=== PATIENT | female | born 1935 | race Caucasian/White ===

== ENCOUNTER 2017-09-02 20:17 | Inpatient (IN) | payer OTHER, MEDICAID ==
[~2017-09-02] VITALS: Ht 162.6 cm; Wt 97.2 kg
[~2017-09-02 20:17] MED LIST: ADA30 PO; APR10 PO; ASPIR 8181 MG PO; CARD1 PO; CAT0.1 PO; FOL1 PO; K10 PO; L40 PO; LANTUS SOLOS100 U/M1 SC; LEVAQUIN750 MG PO; LISINOPRIL10 MG PO; LYRICA75 M1 PO; NEU300 PO; NOVI SQ; OYSCO 500 + D 51 TAB PO; PRA40 PO; PRI20 PO; SYN1 PO; XANAX0.5 MG PO
[2017-09-02 21:41] LABS: BASOPHIL % 0.2 % (0-2); PLATELET COUNT 240 x10^3mcL (130-400); RED CELL DISTRIBUTION WIDTH 14.4 % (11.5-14.5)
[2017-09-02 21:58] LABS: ALKALINE PHOSPHATASE 253 U/L (46-116); ALT/SGPT 19 U/L (14-59); AST/SGOT 11 U/L (15-37); BILIRUBIN TOTAL 0.4 mg/dL (0.20-1.00); CALCIUM 8.7 mg/dL (8.5-10.1); CARBON DIOXIDE 28.4 mmol/L (21-32); CHLORIDE SERUM 94 mmol/L (98-107); FREE T4 1.22 ng/dL (0.76-1.46); GLUCOSE SERUM 232 mg/dL (74-106); HDL CHOLESTEROL 41 mg/dL (40-60); LIPASE 129 IU/L (73-393); POTASSIUM SERUM 5.1 mmol/L (3.5-5.1); SODIUM SERUM 133 mmol/L (136-145); T4(THYROXINE) 7.4 ug/dL (4.7-13.3); TOTAL PROTEIN, SERUM 8.1 g/dL (6.4-8.2); TRIGLYCERIDES 140 mg/dL (<150)
[2017-09-02 22:01] LABS: ALBUMIN 2.3 g/dL (3.4-5.0); CHOLESTEROL 124 mg/dL (<200); CREATININE SERUM 8.1 mg/dL (0.6-1.0)
[2017-09-02 22:24] LABS: T3 TOTAL 0.54 ng/mL
[2017-09-02 23:41] LABS: MAGNESIUM 2.6 mg/dL (1.8-2.4); PHOSPHOROUS 5.7 mg/dL (2.5-4.9)
[2017-09-03 00:05] VITALS: BP 135/46
[2017-09-03 00:09] VITALS: Ht 162.6 cm; Wt 97.2 kg
[2017-09-03 05:48] VITALS: BP 147/48
[2017-09-03 09:05] VITALS: BP 114/60
[2017-09-03 13:47] VITALS: BP 114/51
[2017-09-03 17:52] VITALS: BP 101/45
[2017-09-03 19:48] LABS: BASOPHIL % 0.3 % (0-2); PLATELET COUNT 222 x10^3mcL (130-400)
[2017-09-03 19:52] LABS: CALCIUM 8.6 mg/dL (8.5-10.1); CARBON DIOXIDE 33.8 mmol/L (21-32); CHLORIDE SERUM 99 mmol/L (98-107); GLUCOSE SERUM 161 mg/dL (74-106); MAGNESIUM 1.9 mg/dL (1.8-2.4); POTASSIUM SERUM 3.8 mmol/L (3.5-5.1); SODIUM SERUM 138 mmol/L (136-145)
[2017-09-03 19:57] LABS: CREATININE SERUM 4.5 mg/dL (0.6-1.0)
[2017-09-03 22:42] VITALS: BP 151/47
[2017-09-04 05:22] VITALS: BP 134/48
[2017-09-04 05:36] LABS: microscopic required? YES; urine erythrocyte 1+ (NEGATIVE)
[2017-09-04 05:51] LABS: AMPHETAMINE QUAL UR NONE DETECTED (NEG <=1000)
[2017-09-04 06:05] LABS: BASOPHIL % 0.3 % (0-2); PLATELET COUNT 212 x10^3mcL (130-400); RED CELL DISTRIBUTION WIDTH 14.3 % (11.5-14.5)
[2017-09-04 06:22] LABS: CALCIUM 8.7 mg/dL (8.5-10.1); CARBON DIOXIDE 31.4 mmol/L (21-32); CHLORIDE SERUM 97 mmol/L (98-107); GLUCOSE SERUM 167 mg/dL (74-106); MAGNESIUM 2.2 mg/dL (1.8-2.4); PHOSPHOROUS 6.1 mg/dL (2.5-4.9); POTASSIUM SERUM 4.4 mmol/L (3.5-5.1); SODIUM SERUM 136 mmol/L (136-145)
[2017-09-04 06:32] LABS: CREATININE SERUM 5.2 mg/dL (0.6-1.0)
[2017-09-04 09:19] VITALS: BP 103/55
[2017-09-04 13:19] VITALS: BP 145/53
[2017-09-04 17:07] VITALS: BP 139/50
[2017-09-04 21:19] VITALS: BP 119/49
[2017-09-05 06:09] LABS: CALCIUM 8.8 mg/dL (8.5-10.1); CHLORIDE SERUM 98 mmol/L (98-107); GLUCOSE SERUM 117 mg/dL (74-106); MAGNESIUM 2.5 mg/dL (1.8-2.4); POTASSIUM SERUM 4.4 mmol/L (3.5-5.1); SODIUM SERUM 137 mmol/L (136-145)
[2017-09-05 06:12] LABS: CREATININE SERUM 6.4 mg/dL (0.6-1.0)
[2017-09-05 06:26] LABS: BASOPHIL % 0.6 % (0-2); PLATELET COUNT 216 x10^3mcL (130-400); RED CELL DISTRIBUTION WIDTH 14.2 % (11.5-14.5)
[2017-09-05 06:51] VITALS: BP 115/51
[2017-09-05 10:08] VITALS: BP 129/53
[2017-09-05 14:09] VITALS: BP 127/55
[2017-09-05 16:39] VITALS: BP 127/55
[2017-09-05 17:40] VITALS: BP 127/48
[2017-09-05 21:12] VITALS: BP 134/46
[2017-09-06 05:56] VITALS: BP 139/56
[2017-09-06 06:30] LABS: BASOPHIL % 0.6 % (0-2); PLATELET COUNT 232 x10^3mcL (130-400); RED CELL DISTRIBUTION WIDTH 13.9 % (11.5-14.5)
[2017-09-06 07:03] LABS: CALCIUM 8.8 mg/dL (8.5-10.1); CARBON DIOXIDE 32.4 mmol/L (21-32); CHLORIDE SERUM 97 mmol/L (98-107); GLUCOSE SERUM 61 mg/dL (74-106); MAGNESIUM 2.3 mg/dL (1.8-2.4); PHOSPHOROUS 5.1 mg/dL (2.5-4.9); POTASSIUM SERUM 3.5 mmol/L (3.5-5.1); SODIUM SERUM 129 mmol/L (136-145)
[2017-09-06 07:20] LABS: CREATININE SERUM 4.6 mg/dL (0.6-1.0)
[2017-09-06 09:00] VITALS: BP 146/48
[2017-09-06] MEDS ORDERED: CLEOCIN HCL150 MG PO (13:06)
[2017-09-06] MEDS ORDERED: LEVAQUIN750 MG PO (13:07)
[2017-09-06 14:13] VITALS: BP 132/49
== END 2017-09-06 17:50 | DRG 637 ==
LOC: ED 20:17 → DU 22:20
PROVIDERS: Specialist; ADMIT Family Medicine Sports Medicine
PROC: 0HBMXZZ Excision of Right Foot Skin, External Approach (ICD-10-PCS; principal; 2017-09-04)
DX: E11.628 Type 2 diabetes mellitus with other skin complications (principal); E43 Unspecified severe protein-calorie malnutrition; L03.115 Cellulitis of right lower limb; I12.0 Hypertensive chronic kidney disease with stage 5 chronic kidney disease or end stage renal disease; D68.69 Other thrombophilia; N39.0 Urinary tract infection, site not specified; B96.20 Unspecified Escherichia coli [E. coli] as the cause of diseases classified elsewhere; N18.6 End stage renal disease; N17.0 Acute kidney failure with tubular necrosis; L97.519 Non-pressure chronic ulcer of other part of right foot with unspecified severity; E11.621 Type 2 diabetes mellitus with foot ulcer; E11.51 Type 2 diabetes mellitus with diabetic peripheral angiopathy without gangrene; E11.65 Type 2 diabetes mellitus with hyperglycemia; E83.41 Hypermagnesemia; E83.39 Other disorders of phosphorus metabolism; D53.9 Nutritional anemia, unspecified; E03.9 Hypothyroidism, unspecified; K21.9 Gastro-esophageal reflux disease without esophagitis; Z68.35 Body mass index [BMI] 35.0-35.9, adult; Z99.2 Dependence on renal dialysis; Z91.81 History of falling; Z79.4 Long term (current) use of insulin; Z16.24 Resistance to multiple antibiotics
CPT/HCPCS: 36600; 82962; 83880; 84439; 97110-GP; 97116-GP; 97530-GP; A4719; J0885-EC; J1644; J1815; J1885; J1956; J2405; J3490; J7030; Q0092

== ENCOUNTER 2018-02-03 19:05 | Inpatient (IN) | payer OTHER, MEDICAID ==
[~2018-02-03] VITALS: Ht 162.6 cm; Wt 86.7 kg
[~2018-02-03 19:05] MED LIST changes: +CLEOCIN HCL150 MG PO
[2018-02-03] MEDS ORDERED: RENVELA800 M1 PO (19:53)
[2018-02-03] MEDS ORDERED: DIALYVITE 800 W1 TA2 PO (19:55)
[2018-02-03] MEDS ORDERED: GABAPENTIN100 M2 PO (19:55)
[2018-02-03] MEDS ORDERED: TRAMADOL HCL50 MG PO (19:56)
[2018-02-03] MEDS ORDERED: ATORVASTATIN CA40 M1 PO (19:57)
[2018-02-03] MEDS ORDERED: XANAX0.5 MG PO (19:58)
[2018-02-03 20:24] LABS: BASOPHIL % 0.1 % (0-2); PLATELET COUNT 205 x10^3mcL (130-400); RED CELL DISTRIBUTION WIDTH 15.2 % (11.5-14.5)
[2018-02-03 20:42] LABS: ALKALINE PHOSPHATASE 232 U/L (46-116); ALT/SGPT 18 U/L (14-59); AST/SGOT 8 U/L (15-37); BILIRUBIN TOTAL 0.56 mg/dL (0.20-1.00); CALCIUM 9.7 mg/dL (8.5-10.1); CARBON DIOXIDE 30.2 mmol/L (21-32); CHLORIDE SERUM 96 mmol/L (98-107); GLUCOSE SERUM 84 mg/dL (74-106); POTASSIUM SERUM 5.2 mmol/L (3.5-5.1); SODIUM SERUM 136 mmol/L (136-145); TOTAL PROTEIN, SERUM 8.2 g/dL (6.4-8.2)
[2018-02-03 20:46] LABS: ALBUMIN 2.5 g/dL (3.4-5.0); CHOLESTEROL 114 mg/dL (<200); CREATININE SERUM 6.2 mg/dL (0.6-1.0); HDL CHOLESTEROL 61 mg/dL (40-60)
[2018-02-03] MEDS ORDERED: HUMI SC (21:46)
[2018-02-03] MEDS ORDERED: LANTUS SOLOS100 U/M1 SQ (21:46)
[2018-02-03 22:04] LABS: MAGNESIUM 2.4 mg/dL (1.8-2.4); PHOSPHOROUS 5.1 mg/dL (2.5-4.9)
[2018-02-03 22:11] LABS: T3 TOTAL 0.68 ng/mL
[2018-02-03 22:14] LABS: FREE T4 1.21 ng/dL (0.76-1.46); FREE THYROXINE INDEX 2.4 ug/dL (1.4-4.5); T4(THYROXINE) 6.5 ug/dL (4.7-13.3)
[2018-02-03 22:28] VITALS: BP 112/43
[2018-02-03] MEDS ORDERED: HYDRALAZINE HCL10 MG PO (23:30)
[2018-02-03] MEDS ORDERED: KLOR-CON 88 MEQ PO (23:40)
[2018-02-04 00:31] VITALS: BP 112/43
[2018-02-04 05:19] VITALS: BP 141/57
[2018-02-04 06:48] LABS: PLATELET COUNT 181 x10^3mcL (130-400)
[2018-02-04 07:05] LABS: BASOPHIL % 0 % (0-2); RED CELL DISTRIBUTION WIDTH 14.8 % (11.5-14.5)
[2018-02-04 09:16] LABS: CALCIUM 9.7 mg/dL (8.5-10.1); CARBON DIOXIDE 26.1 mmol/L (21-32); CHLORIDE SERUM 94 mmol/L (98-107); GLUCOSE SERUM 283 mg/dL (74-106); SODIUM SERUM 133 mmol/L (136-145)
[2018-02-04 09:20] LABS: POTASSIUM SERUM 6.3 mmol/L (3.5-5.1)
[2018-02-04 10:19] VITALS: BP 106/64
[2018-02-04 13:34] VITALS: BP 154/55
[2018-02-04 17:42] VITALS: BP 156/59
[2018-02-04 21:33] VITALS: BP 107/50
[2018-02-05 01:47] LABS: CALCIUM 9.4 mg/dL (8.5-10.1); CARBON DIOXIDE 30.9 mmol/L (21-32); CHLORIDE SERUM 96 mmol/L (98-107); GLUCOSE SERUM 272 mg/dL (74-106); POTASSIUM SERUM 4.2 mmol/L (3.5-5.1); SODIUM SERUM 135 mmol/L (136-145)
[2018-02-05 01:52] LABS: CREATININE SERUM 4.1 mg/dL (0.6-1.0)
[2018-02-05 05:33] VITALS: BP 138/47
[2018-02-05 06:35] LABS: PLATELET COUNT 191 x10^3mcL (130-400)
[2018-02-05 06:48] LABS: RED CELL DISTRIBUTION WIDTH 14.7 % (11.5-14.5)
[2018-02-05 06:49] LABS: BASOPHIL % 0 % (0-2)
[2018-02-05 06:53] LABS: CALCIUM 9.6 mg/dL (8.5-10.1); CARBON DIOXIDE 29.2 mmol/L (21-32); CHLORIDE SERUM 95 mmol/L (98-107); GLUCOSE SERUM 267 mg/dL (74-106); MAGNESIUM 2.1 mg/dL (1.8-2.4); PHOSPHOROUS 6.3 mg/dL (2.5-4.9); POTASSIUM SERUM 4.6 mmol/L (3.5-5.1); SODIUM SERUM 133 mmol/L (136-145); URIC ACID 3.3 mg/dL (2.6-6.0)
[2018-02-05 06:59] LABS: CREATININE SERUM 4.7 mg/dL (0.6-1.0)
[2018-02-05 09:03] VITALS: BP 108/39
[2018-02-05 13:35] VITALS: BP 130/51
[2018-02-05 17:24] VITALS: BP 101/50
[2018-02-05 20:34] VITALS: BP 122/50
[2018-02-06 05:39] VITALS: BP 131/43
[2018-02-06 07:19] LABS: BASOPHIL % 0.2 % (0-2); PLATELET COUNT 197 x10^3mcL (130-400)
[2018-02-06 07:20] LABS: RED CELL DISTRIBUTION WIDTH 15.2 % (11.5-14.5)
[2018-02-06 07:32] LABS: CALCIUM 9.3 mg/dL (8.5-10.1); CARBON DIOXIDE 28.3 mmol/L (21-32); CHLORIDE SERUM 97 mmol/L (98-107); GLUCOSE SERUM 89 mg/dL (74-106); MAGNESIUM 2.2 mg/dL (1.8-2.4); PHOSPHOROUS 7.2 mg/dL (2.5-4.9); POTASSIUM SERUM 4.5 mmol/L (3.5-5.1); SODIUM SERUM 135 mmol/L (136-145)
[2018-02-06 07:52] VITALS: Ht 162.6 cm; Wt 86.7 kg
[2018-02-06 09:10] VITALS: BP 129/45
[2018-02-06] MEDS ORDERED: ECO81 PO (11:03)
[2018-02-06] MEDS ORDERED: REN800 PO (11:04)
[2018-02-06] MEDS ORDERED: LAC PO (11:05)
[2018-02-06] MEDS ORDERED: BACO TOP (11:05)
[2018-02-06] MEDS ORDERED: MYCP TOP (11:06)
[2018-02-06] MEDS ORDERED: HIBICLENS118 ML TOP (11:06)
[2018-02-06] MEDS ORDERED: LEV250PM IV (11:35)
[2018-02-06] MEDS ORDERED: CLINDAMYCI600 MG/50 IV (11:37)
[2018-02-06 12:13] VITALS: BP 161/57
[2018-02-06 16:29] VITALS: BP 161/57
== END 2018-02-06 18:18 | DRG 177 ==
LOC: ED 19:05 → DU 21:25
PROVIDERS: Emergency Medicine; Family Medicine
DX: J69.0 Pneumonitis due to inhalation of food and vomit (principal); N18.6 End stage renal disease; N17.0 Acute kidney failure with tubular necrosis; J45.901 Unspecified asthma with (acute) exacerbation; I12.0 Hypertensive chronic kidney disease with stage 5 chronic kidney disease or end stage renal disease; E87.1 Hypo-osmolality and hyponatremia; Z99.2 Dependence on renal dialysis; E11.40 Type 2 diabetes mellitus with diabetic neuropathy, unspecified; K21.9 Gastro-esophageal reflux disease without esophagitis; E78.00 Pure hypercholesterolemia, unspecified; E11.22 Type 2 diabetes mellitus with diabetic chronic kidney disease; E03.9 Hypothyroidism, unspecified; Z82.49 Family history of ischemic heart disease and other diseases of the circulatory system; Z68.37 Body mass index [BMI] 37.0-37.9, adult; F41.9 Anxiety disorder, unspecified; D64.9 Anemia, unspecified; E87.8 Other disorders of electrolyte and fluid balance, not elsewhere classified; E87.5 Hyperkalemia; E66.9 Obesity, unspecified
CPT/HCPCS: 82962; 83880; 84439; 87804; 94150; 97110-GP; 97530-GP; J0696; J1644; J1815; J1956; J2550; J2920; J3490; J7030; J7512; J7613; J7620; Q0092; Q0162

== ENCOUNTER 2018-03-12 12:49 | Emergency (ER) | payer OTHER, MEDICAID ==
[~2018-03-12] VITALS: Ht 157.5 cm; Wt 90.7 kg
[~2018-03-12 12:49] MED LIST changes: +ATORVASTATIN CA40 M1 PO; +BACO TOP; +CLINDAMYCI600 MG/50 IV; +DIALYVITE 800 W1 TA2 PO; +ECO81 PO; +GABAPENTIN100 M2 PO; +HIBICLENS118 ML TOP; +HUMI SC; +HYDRALAZINE HCL10 MG PO; +KLOR-CON 88 MEQ PO; +LAC PO; +LANTUS SOLOS100 U/M1 SQ; +LEV250PM IV; +MYCP TOP; +REN800 PO; +RENVELA800 M1 PO; +TRAMADOL HCL50 MG PO
[2018-03-12 12:56] VITALS: Ht 157.5 cm; Wt 90.7 kg
[2018-03-12 14:51] VITALS: BP 133/59
== END 2018-03-12 14:50 | disposition home or self-care (01) ==
LOC: ED 12:49
DX: S92.351A Displaced fracture of fifth metatarsal bone, right foot, initial encounter for closed fracture (principal); S91.114A Laceration without foreign body of right lesser toe(s) without damage to nail, initial encounter; J45.909 Unspecified asthma, uncomplicated; E78.00 Pure hypercholesterolemia, unspecified; E07.9 Disorder of thyroid, unspecified; G62.9 Polyneuropathy, unspecified; K21.9 Gastro-esophageal reflux disease without esophagitis; E11.22 Type 2 diabetes mellitus with diabetic chronic kidney disease; I12.9 Hypertensive chronic kidney disease with stage 1 through stage 4 chronic kidney disease, or unspecified chronic kidney disease; Z99.2 Dependence on renal dialysis; W22.8XXA Striking against or struck by other objects, initial encounter; Y93.89 Activity, other specified; Y99.8 Other external cause status; Y92.89 Other specified places as the place of occurrence of the external cause
CPT/HCPCS: Q0092

== ENCOUNTER 2018-04-01 16:16 | Emergency (ER) | payer OTHER ==
[~2018-04-01] VITALS: Ht 165.1 cm; Wt 93.4 kg
[2018-04-01 17:46] VITALS: BP 111/62
== END 2018-04-01 17:46 | disposition home or self-care (01) ==
LOC: ED 16:16
DX: T82.838A Hemorrhage due to vascular prosthetic devices, implants and grafts, initial encounter (principal); J45.909 Unspecified asthma, uncomplicated; I10 Essential (primary) hypertension; E11.9 Type 2 diabetes mellitus without complications; E78.00 Pure hypercholesterolemia, unspecified; Z99.2 Dependence on renal dialysis